=== PATIENT | male | born 1995 | race Caucasian/White ===

== ENCOUNTER 2019-04-05 20:44 | Emergency (ER) | payer BC ==
--- NOTE | 2019-04-05 21:21 | EDM.PDOC ---
ED HPI GENERAL MEDICAL PROBLEM - General Chief Complaint: Upper Extremity Injury/Pain Stated Complaint: SLAMMED LT THUMB IN DOOR A FEW DAYS AGO Time Seen by Provider: 04/05/19 21:12 - History of Present Illness INITIAL COMMENTS - FREE TEXT/NARRATIVE: HISTORY AND PHYSICAL: History of present illness: The patient is a healthy 23-year-old male who is left-hand dominant and presents with complaints of closing a car door on his left thumb yesterday afternoon. He said he had pain at the area but did not want to come in and he noticed blood underneath his fingernail. Today he was having increased pain and pressure so he tried to make a small hole in the nail and he was able to get some blood but not much came out. He is now here for evaluation. He has no injury to the remainder of the other digits or hand. And there are no other injuries from this event Review of systems: As per history of present illness and below otherwise all systems reviewed and negative. Past medical history: As per history of present illness and as reviewed below otherwise noncontributory. Surgical history: As per history of present illness and as reviewed below otherwise noncontributory. Social history: No reported history of drug or alcohol abuse. Family history: As per history of present illness and as reviewed below otherwise noncontributory. Physical exam: HEENT: Atraumatic, normocephalic, negative for conjunctival pallor or scleral icterus, mucous membranes moist, throat clear, neck supple, nontender, trachea midline. Lungs: Clear to auscultation, breath sounds equal bilaterally, chest nontender. Heart: S1S2, regular rate and rhythm no overt murmurs Abdomen: Soft, nondistended, nontender. NABS Pelvis: Deferred Genitourinary: Deferred. Rectal: Deferred. Extremities: Atraumatic, and full range of motion of all extremities with the exception of the left thumb. At the distal phalanx of the left thumb there is some diffuse soft tissue swelling and some erythema at the base of the nail near the cuticle. There is a dark subungual hematoma noted that encompasses about half of the nail bed and there is a small hole seen with some clotted blood at the center of this area where the patient had tried to drain it. The remainder of the fingers and hand are nontender without defects or deformities and there is only tenderness to the distal phalanx of the thumb and the remainder of the left thumb is intact and nontender Neurovascular unremarkable. Neuro: Awake, alert, oriented. Cranial nerves II through XII unremarkable. Cerebellum unremarkable. Motor and sensory unremarkable throughout. Exam nonfocal. Diagnostics: X-ray left thumb Therapeutics: [place] 5/325 I discussed with the patient that as this injury is over 24 hours old the odds of is getting out blood at this point is negative due to clotting. He says that he is sure that he penetrated and got through the nail and did not get much output and does not want any further attempts. Impression: Left thumb subungual hematoma/blunt trauma Definitive disposition and diagnosis as appropriate pending reevaluation and review of above. left thumb Pain Score (Numeric/FACES): 10 - Related Data Allergies Allergy/AdvReac Type Severity Reaction Status Date / Time Penicillins Allergy unknown Verified 04/05/19 21:19 Home Meds: Home Meds . [No Known Home Meds] 04/05/19 [History] Past Medical History HEENT History: Reports: None Cardiovascular History: Reports: None Respiratory History: Reports: None Gastrointestinal History: Reports: Hiatal Hernia Psychiatric History: Reports: None Hematologic History: Reports: None Oncologic (Cancer) History: Reports: None - Infectious Disease History Infectious Disease History: Reports: None - Past Surgical History GI Surgical History: Reports: Hernia Repair/Other Dermatological Surgical History: Reports: Other (See Below) Social & Family History - Family History Family Medical History: Noncontributory Review of Systems - Review of Systems Review Of Systems: ROS reveals no pertinent complaints other than HPI. ED EXAM, GENERAL - Physical Exam Exam: See Below (See dictation) Course - Vital Signs Last Recorded V/S: Last Vital Signs Temp 36.4 C 04/05/19 21:05 Pulse 82 04/05/19 21:05 Resp 18 04/05/19 21:05 BP 124/48 L 04/05/19 21:05 Pulse Ox 97 04/05/19 21:05 - Orders/Labs/Meds Meds: Medications Discontinued Medications Generic Name Dose Route Start Last Admin Trade Name Freq PRN Reason Stop Dose Admin Hydrocodone Bitart/Acetaminophen 1 tab 04/05/19 21:17 04/05/19 21:44 [place] 325-5 Mg PO 04/05/19 21:18 1 tab ONETIME ONE Administration Departure - Departure Time of Disposition: 22:06 Disposition: Home, Self-Care 01 Condition: Good Clinical Impression: Injury of left thumb Qualifiers: Encounter type: initial encounter Qualified Code(s): S69.92XA - Unspecified injury of left wrist, hand and finger(s), initial encounter Subungual hematoma of left thumb Qualifiers: Encounter type: initial encounter Qualified Code(s): S60.112A - Contusion of left thumb with damage to nail, initial encounter - Discharge Information Referrals: Sherman Jay MD [Primary Care Provider] - Forms: ED Department Discharge Additional Instructions: The following information is given to patients seen in the emergency department who are being discharged to home. This information is to outline your options for follow-up care. We provide all patients seen in our emergency department with a follow-up referral. The need for follow-up, as well as the timing and circumstances, are variable depending upon the specifics of your emergency department visit. If you don't have a primary care physician on staff, we will provide you with a referral. We always advise you to contact your personal physician following an emergency department visit to inform them of the circumstance of the visit and for follow-up with them and/or the need for any referrals to a consulting specialist. The emergency department will also refer you to a specialist when appropriate. This referral assures that you have the opportunity for followup care with a specialist. All of these measure are taken in an effort to provide you with optimal care, which includes your followup. Under all circumstances we always encourage you to contact your private physician who remains a resource for coordinating your care. When calling for followup care, please make the office aware that this follow-up is from your recent emergency room visit. If for any reason you are refused follow-up, please contact the [facility] emergency department at and ask to speak to the emergency department charge nurse. [facility] [address] [place] [id number] Ice and elevate the area and use [id number] ibuprofen/Motrin and Tylenol for pain management. Follow-up with our hand specialist using resources given to above and return to ER as needed and as discussed. Please keep the fingernail very short as it grows as the nail will lift and you do not want to pull it off. He may use the tramadol you have been given for stronger pain that is not controlled by Tylenol or Profen. Please only take this medication when you're home
--- NOTE | 2019-04-05 21:43 | CR ---
INDICATION: Trauma TECHNIQUE: Three views left thumb COMPARISON: None FINDINGS: Bones: Alignment is normal. No fractures or bone lesions. Joint spaces: Unremarkable. Soft tissues: Unremarkable. IMPRESSION: Negative. Dictated by Ted Bains MD @ 04/05/2019 9:42:55 PM Dictated by: Ted Bains MD @ 04/05/2019 21:43:03 (Electronically Signed)
[2019-04-05] MEDS: Acetaminophen/HYDROcodone 325-5 MG Tab PO ONE (21:44)
[2019-04-05 22:35] VITALS: BP 117/67
== END 2019-04-05 22:29 | disposition home or self-care (01) ==
LOC: MW.ED 20:44
DX: S60.112A Contusion of left thumb with damage to nail, initial encounter (principal); W23.0XXA Caught, crushed, jammed, or pinched between moving objects, initial encounter
CPT/HCPCS: 73140; 99283; A9270

== ENCOUNTER 2022-09-20 14:29 | Inpatient (IN) | payer BC ==
[2022-09-20 16:25] LABS: CARBON DIOXIDE,CO2 26.3 mmol/L (21.0-32.0); POTASSIUM,K 3.5 mmol/L (3.5-5.1)
[2022-09-20] MEDS ORDERED: Meropenem Premix 50 ML IV ONE (16:28)
[2022-09-20] MEDS ORDERED: HYDROmorphone 2 MG/ML Syringe IVPUSH ONE (16:29)
[2022-09-20] MEDS ORDERED: Sodium Chloride 0.9% 1,000 ML IV ONE (16:29)
[2022-09-20] MEDS ORDERED: Ketorolac 30 MG/ML SDV IVPUSH ONE (16:29)
[2022-09-20] MEDS ORDERED: Magnesium Sulfate/Water 2 GM in Premix Bag 1 BAG IV ONE (16:32)
[2022-09-20] MEDS ORDERED: Ondansetron 4 MG/2 ML SDV IVPUSH ONE (16:34)
[2022-09-20] MEDS ORDERED: VANCOmycin 1.25 GM/250 ML 1.25 GM in Premix Bag 1 BAG IV ONE (16:45)
[2022-09-20] MEDS ORDERED: VANCOmycin 1.25 GM/250 ML 250 ML IV ONE (16:45)
[2022-09-20] MEDS ORDERED: Iopamidol 755 MG/ML 500 ML Multipack Bottle IVPUSH STA (17:39)
[2022-09-20] MEDS ORDERED: Vancomycin 125 MG Cap PO STA (18:14)
[2022-09-20 18:26] LABS: CORONAVIRUS COVID-19 NAA POSITIVE (NEGATIVE); INFLUENZA A NAA NEGATIVE (NEGATIVE); INFLUENZA B NAA NEGATIVE (NEGATIVE)
[2022-09-20] MEDS ORDERED: Albuterol/Ipratropium 3.0-0.5 MG/3 ML Neb Soln NEB PRN (21:27)
[2022-09-20] MEDS ORDERED: Ondansetron 4 MG/2 ML SDV IVPUSH PRN (21:27)
[2022-09-20] MEDS: Morphine 2 MG/ML SYRINGE IVPUSH PRN (21:50)
[2022-09-20] MEDS: Lactated Ringers 1,000 ML IV SCH (21:51)
[2022-09-20] MEDS: Vancomycin 125 MG Cap PO SCH (23:19)
[2022-09-21] MEDS: Lactated Ringers 1,000 ML IV SCH ×3 (02:53→22:36)
[2022-09-21] MEDS: Morphine 2 MG/ML SYRINGE IVPUSH PRN ×2 (05:42→09:38)
[2022-09-21] MEDS: Vancomycin 125 MG Cap PO SCH ×3 (05:43→18:23)
[2022-09-21 06:58] LABS: CARBON DIOXIDE,CO2 27.1 mmol/L (21.0-32.0); POTASSIUM,K 3.5 mmol/L (3.5-5.1)
[2022-09-21] MEDS ORDERED: Potassium Phosphates 3 mMole/ML 15 ML SDV IV ONE (07:34)
[2022-09-21] MEDS ORDERED: POTASSIUM PHOSPHATES IV ONE (08:30)
[2022-09-21] MEDS ORDERED: SODIUM CHLORIDE IV ONE (08:30)
[2022-09-21] MEDS: Pantoprazole 40 MG in Sodium Chloride 0.9% 10 ML IVPUSH SCH ×2 (09:35→22:35)
[2022-09-21] MEDS ORDERED: diphenhydrAMINE 50 MG/ML SDV IVPUSH ONE (22:29)
[2022-09-22] MEDS: Vancomycin 125 MG Cap PO SCH ×3 (00:05→11:53)
[2022-09-22] MEDS: Lactated Ringers 1,000 ML IV SCH ×2 (03:57→09:03)
[2022-09-22] MEDS ORDERED: Famotidine 20 MG Tab PO ONE (04:14)
[2022-09-22] MEDS ORDERED: methylPREDNISolone Sodium Succinate 40 MG/1 ML SDV IVPUSH ONE (04:30)
[2022-09-22] MEDS: diphenhydrAMINE 50 MG/ML SDV IVPUSH SCH ×3 (04:43→12:19)
[2022-09-22 07:03] LABS: CARBON DIOXIDE,CO2 27.1 mmol/L (21.0-32.0); POTASSIUM,K 3.6 mmol/L (3.5-5.1)
[2022-09-22] MEDS: Pantoprazole 40 MG in Sodium Chloride 0.9% 10 ML IVPUSH SCH (10:17)
[2022-09-22 11:13] VITALS: BP 114/67; PULSE 67
== END 2022-09-22 12:55 | disposition home or self-care (01) | DRG 248 ==
LOC: MW.ED 14:29 → MW.MS 18:46
PROVIDERS: ADMIT Student in an Organized Health Care Education/Training Program; ATTEND Family Medicine
PROC: 8E0ZXY6 Isolation (ICD-10-PCS; principal; 2022-09-20)
DX: A04.72 Enterocolitis due to Clostridium difficile, not specified as recurrent (principal); U07.1 COVID-19; E86.0 Dehydration; T36.8X5A Adverse effect of other systemic antibiotics, initial encounter; E83.42 Hypomagnesemia; Z88.0 Allergy status to penicillin
CPT/HCPCS: 0240U; 36415; 74177; 74177-26; 80053; 81001; 82947; 83605; 83735; 84100; 85007; 85025; 85027; 87040; 87045; 87046; 87324; 87328; 87329; 87449; 87899; A9270-GY; C9113; J1170; J1200; J1885; J2185; J2270; J2405; J2920; J3370; J3475; J3490; J7030; J7120; J7620-GY; Q9967

== ENCOUNTER 2023-01-08 08:17 | Observation (INO) | payer BC ==
[2023-01-08] MEDS ORDERED: Sodium Chloride 0.9% 10 ML Syringe FLUSH PRN (08:41)
[2023-01-08] MEDS ORDERED: Sodium Chloride 0.9% 2.5 ML Syringe FLUSH PRN (08:41)
[2023-01-08 08:59] LABS: CARBON DIOXIDE,CO2 28.1 mmol/L (21.0-32.0); POTASSIUM,K 3.4 mmol/L (3.5-5.1)
[2023-01-08 10:25] LABS: CORONAVIRUS COVID-19 NAA NEGATIVE (NEGATIVE); INFLUENZA A NAA NEGATIVE (NEGATIVE); INFLUENZA B NAA NEGATIVE (NEGATIVE); RESPIRATORY SYNCYTIAL VIR NAA NEGATIVE (NEGATIVE)
[2023-01-08] MEDS ORDERED: Iopamidol 755 MG/ML 500 ML Multipack Bottle IVPUSH ONE (11:29)
[2023-01-08] MEDS ORDERED: Alum Hydro/Mag Hydro/Simeth XS 15 ML, Lidocaine 2% 5 ML PO ONE ×2 (13:43)
[2023-01-08] MEDS ORDERED: Aluminum Hydroxide/Magnesium Hydroxide/Simethicone XS Susp 30 ML Cup ONE (13:51)
[2023-01-08] MEDS: methylPREDNISolone Sodium Succinate 40 MG/1 ML SDV IVPUSH SCH (13:54)
[2023-01-08] MEDS ORDERED: Bisacodyl 5 MG Tab PO STA (15:09)
[2023-01-08] MEDS ORDERED: Ibuprofen 400 MG Tab PO PRN (15:15)
[2023-01-08] MEDS ORDERED: Ondansetron 4 MG/2 ML SDV IVPUSH PRN (15:15)
[2023-01-08] MEDS ORDERED: Acetaminophen 325 MG Tab PO PRN (15:15)
[2023-01-08] MEDS ORDERED: Bisacodyl 10 MG Supp RECTAL ONE (15:40)
[2023-01-08] MEDS ORDERED: Pantoprazole 40 MG in Sodium Chloride 0.9% 10 ML IVPUSH ONE (15:40)
[2023-01-08] MEDS: Sodium Chloride 0.9% 1,000 ML IV SCH ×2 (16:11→23:10)
[2023-01-08] MEDS: Morphine 2 MG/ML SYRINGE IVPUSH PRN ×2 (16:16→18:30)
[2023-01-08] MEDS: Bisacodyl 5 MG Tab PO SCH (17:22)
[2023-01-08] MEDS: Polyethylene Glycol 3350 Powder 17 GM Packet PO SCH (17:23)
[2023-01-08] MEDS: Albuterol/Ipratropium 3.0-0.5 MG/3 ML Neb Soln NEB SCH ×3 (17:47→23:10)
[2023-01-09] MEDS: Morphine 2 MG/ML SYRINGE IVPUSH PRN (00:54)
[2023-01-09] MEDS: methylPREDNISolone Sodium Succinate 40 MG/1 ML SDV IVPUSH SCH (00:55)
[2023-01-09] MEDS: Albuterol/Ipratropium 3.0-0.5 MG/3 ML Neb Soln NEB SCH (06:09)
[2023-01-09] MEDS: Pantoprazole 40 MG Tab.CR PO SCH ×2 (06:09→06:34)
[2023-01-09 06:21] LABS: CARBON DIOXIDE,CO2 26.4 mmol/L (21.0-32.0); POTASSIUM,K 3.9 mmol/L (3.5-5.1)
[2023-01-09] MEDS: Sodium Chloride 0.9% 1,000 ML IV SCH (06:48)
[2023-01-09] MEDS: Bisacodyl 5 MG Tab PO SCH (08:25)
[2023-01-09] MEDS: Polyethylene Glycol 3350 Powder 17 GM Packet PO SCH (08:25)
[2023-01-09 08:28] VITALS: BP 118/55; PULSE 87
[2023-01-09 20:02] LABS: BORDETELLA PARAPERT IS1001 Not Detected (Not Detected)
== END 2023-01-09 11:20 | disposition home or self-care (01) ==
LOC: MW.ED 08:17 → MW.MS 14:25
PROVIDERS: ADMIT Internal Medicine; ATTEND Internal Medicine
DX: R07.1 Chest pain on breathing (principal); J40 Bronchitis, not specified as acute or chronic; D72.829 Elevated white blood cell count, unspecified; F17.210 Nicotine dependence, cigarettes, uncomplicated; K44.9 Diaphragmatic hernia without obstruction or gangrene; K52.9 Noninfective gastroenteritis and colitis, unspecified; Z98.890 Other specified postprocedural states; Z20.822 Contact with and (suspected) exposure to COVID-19; Z88.0 Allergy status to penicillin
CPT/HCPCS: 0241U; 36415; 71045; 71275; 74177; 80048; 80053; 83690; 83735; 84484; 85025; 85379; 85610; 85652; 86140; 87486; 87581; 87633; 87798; 93005; 96361; 96374; 96375; 96376; 99285; A9270; C9113; G0378; J2270; J2920; J3490; J7030; Q9967; 93010; 99221; 99238; 99284; J7620-GY